=== PATIENT | male | born 1945 | race Caucasian/White ===

== ENCOUNTER → 2018-05-30 | Outpatient (CLI) | payer MEDICARE, BC ==
--- NOTE | 2018-05-30 09:49 | XR ---
EXAMINATION TYPE: XR chest 2V DATE OF EXAM: 05/30/2018 COMPARISON: 01/31/2015 TECHNIQUE: PA and lateral views submitted. HISTORY: Shortness of breath FINDINGS: Hyperinflation and cardiomegaly noted. Subsegmental changes at the right lung base. Postoperative mitchell nges. Arthropathy of the shoulders. No pneumothorax or interstitial edema. IMPRESSION: 1. Chronic pleural-parenchymal changes at the right lung base with no definite acute process.
== END | disposition home or self-care (01) ==
LOC: RADXRMAIN 08:46
PROVIDERS: ATTEND Internal Medicine Critical Care Medicine
DX: J94.8 Other specified pleural conditions (principal); J45.901 Unspecified asthma with (acute) exacerbation
CPT/HCPCS: 71046

== ENCOUNTER → 2019-08-23 | Outpatient (CLI) | payer MEDICARE, BC ==
[2019-08-23 08:20] LABS: African American GFR (CKD) >90 (>60 ml/min/1.73 sqM); Blood Urea Nitrogen 12 mg/dL (9-20)
--- NOTE | 2019-08-23 09:16 | CT ---
EXAMINATION TYPE: CT chest w con DATE OF EXAM: 08/23/2019 COMPARISON: Prior chest CT December 04, [address] 2011[address] HISTORY: Cough, asthma exacerbation CT DLP: 428 mGycm. Automated Exposure Control for Dose Reduction was Utilized. TECHNIQUE: CT scan of the thorax is performed following with IV Contrast, patient injected with 100 mL of Isovue 300. FINDINGS: LUNGS: There is redemonstration of anterior right basilar scarring less prominent from prior studies. There is additional posterior bibasilar atelectasis and/or scarring. Some motion artifact degradatio n is present making evaluation suboptimal particularly for subcentimeter nodules. No obvious nodules or masses. No suspicious focal consolidation. No pleural effusion or pneumothorax is evident bilatera lly. MEDIASTINUM: There are no greater than 1 cm hilar or mediastinal lymph nodes. No pericardial effusi on is seen. 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 Mild cardiomegaly. Small hia brenda hernia. OTHER: Dependent small gallstones in gallbladder extend into gallbladder neck. 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 Moderate to severe multilevel spurring in the spine. IMPRESSION: Chronic changes without acute pulmonary process
== END | disposition home or self-care (01) ==
LOC: RADCTMAIN 07:40
PROVIDERS: ATTEND Internal Medicine Critical Care Medicine
DX: J45.901 Unspecified asthma with (acute) exacerbation (principal); Z88.5 Allergy status to narcotic agent; Z88.1 Allergy status to other antibiotic agents
CPT/HCPCS: 82565; 84520; 71260; 36415; Q9967